=== PATIENT | female | born 1935 | race Caucasian/White ===

== ENCOUNTER 2016-04-10 09:39 | Outpatient (CLI) | payer OTHER ==
[~2016-04-10 09:39] MED LIST: TYLENOL325 MG PO
--- NOTE | 2016-04-10 11:44 | DIAGNOSTIC IMAGING REPORT ---
PROCEDURE: CT THORAX WITHOUT CONTRAST INDICATION: LUNG CA TECHNIQUE: Noncontrast axial images were obtained of the chest with coronal and sagittal reformations. COMPARISON: CT chest 01/10/2016 FINDINGS: Hyperinflation and mild emphysema. Stable right upper lobe scarring with a small dystrophic calcification. No adenopathy or effusion. Moderate atherosclerosis of the aorta. Median sternotomy and CABG. Heart size at the upper limits of normal. Findings suspicious for a tiny gallstones in the dependent portion of the gallbladder. Mild degenerative changes of the spine. IMPRESSION: 1. Stable right upper lobe scarring 2. COPD 3. CABG 4. Findings suspicious for tiny gallstones in the dependent portion of the gallbladder. Consider ultrasound for further evaluation.
== END 2016-04-10 23:00 ==
LOC: CT SRH 09:39
DX: C34.90 Malignant neoplasm of unspecified part of unspecified bronchus or lung (principal); J98.4 Other disorders of lung; J44.9 Chronic obstructive pulmonary disease, unspecified; Z95.1 Presence of aortocoronary bypass graft